=== PATIENT | female | born 1975 | race Caucasian/White ===

== ENCOUNTER 2023-03-12 10:34 | Emergency (ER) | payer OTHER ==
[~2023-03-12] VITALS: Ht 162.6 cm; Wt 63.5 kg
[~2023-03-12 10:34] MED LIST: IBUP-1969 PO; TRAM50TA2 PO
[2023-03-12 11:10] VITALS: BP_SYST 106; PULSE 75; RESP 16; TEMP 97.1; O2SAT 100
[2023-03-12] MEDS ORDERED: HYDROcodone/ACETAMIN 7.5-325 MG TAB PO ONE (12:15)
[2023-03-12] MEDS ORDERED: KETOROLAC TROMETHAMINE 60 MG/2 ML VIAL IM ONE (12:15)
[2023-03-12] MEDS ORDERED: IBUP-1969 PO (12:22)
[2023-03-12] MEDS ORDERED: TRAM50TA2 PO (12:22)
[2023-03-12 12:58] VITALS: BP_SYST 104; PULSE 65; RESP 16; TEMP 97.4; O2SAT 99
== END 2023-03-12 12:57 | disposition home or self-care (01) ==
LOC: SED 10:34
DX: S33.5XXA Sprain of ligaments of lumbar spine, initial encounter (principal); Z88.0 Allergy status to penicillin; Z79.899 Other long term (current) drug therapy; X50.0XXA Overexertion from strenuous movement or load, initial encounter; Y93.89 Activity, other specified; Y92.89 Other specified places as the place of occurrence of the external cause; Y99.8 Other external cause status
CPT/HCPCS: 99283; 72100; 81025; 96372; J1885

== ENCOUNTER 2023-06-13 17:07 | Emergency (ER) | payer OTHER ==
[~2023-06-13] VITALS: Ht 162.6 cm; Wt 68.0 kg
[2023-06-13 17:13] VITALS: BP_SYST 149; PULSE 98; RESP 16; TEMP 99.3; O2SAT 99
[2023-06-13 17:55] LABS: BASOPHILS % (AUTO) 0.2 % (0.0-2.0); EOSINOPHILS % (AUTO) 0.2 % (0.0-4.0); HEMATOCRIT 37.6 % (36-48); HEMOGLOBIN 12.8 g/dL (12.0-16.0); LYMPHOCYTES # (AUTO) 0.8 K/uL (1.0-5.5); LYMPHOCYTES % (AUTO) 12.1 % (20.5-51.5); MEAN CORPUSCULAR HEMOGLOBIN 32 pg (27-31); MEAN CORPUSCULAR HGB CONC 34 % (32-36); MEAN CORPUSCULAR VOLUME 94 fL (79.0-98.0); MONOCYTES % (AUTO) 15.2 % (1.7-9.3); NEUTROPHILS # (AUTO) 4.5 K/uL (1.8-7.7); NEUTROPHILS % (AUTO) 72.3 % (40.0-70.0); PLATELET COUNT (AUTO) 262 K/uL (130-430); RED BLOOD CELL COUNT(AUTO) 4.01 MIL/uL (4.2-6.2); RED CELL DISTRIBUTION WIDTH 12.8 % (9.0-15.0); WHITE BLOOD COUNT (AUTO) 6.3 K/uL (4.8-10.8)
[2023-06-13 17:59] LABS: INFLUENZA TYPE A Negative (NEGATIVE); INFLUENZA TYPE B NEGATIVE (NEGATIVE)
[2023-06-13 18:05] LABS: CREATININE 0.62 mg/dL (0.55-1.30); POTASSIUM 3.7 mmol/L (3.5-5.1)
[2023-06-13 18:23] LABS: BILIRUBIN,URINE NEGATIVE (NEGATIVE); BLOOD, URINE NEGATIVE (NEGATIVE); CLARITY/URINE CLEAR (CLEAR); COLOR,URINE YELLOW (YELLOW); GLUCOSE,URINE NEGATIVE (NEGATIVE); KETONES,URINE NEGATIVE (NEGATIVE); LEUKOCYTE ESTERASE ,URINE NEGATIVE (NEGATIVE); NITRITE, URINE NEGATIVE (NEGATIVE); PROTEIN URINE NEGATIVE (NEGATIVE); UROBILINOGEN,URINE 0.2 (0.2-1.0)
[2023-06-13] MEDS ORDERED: NIRM1TAB5 PO (19:12)
[2023-06-13 19:17] VITALS: BP_SYST 110; PULSE 92; RESP 22; TEMP 98.6; O2SAT 96
== END 2023-06-13 19:19 | disposition home or self-care (01) ==
LOC: SED 17:07
DX: U07.1 COVID-19 (principal); R50.9 Fever, unspecified; M79.10 Myalgia, unspecified site; J02.9 Acute pharyngitis, unspecified; Z88.0 Allergy status to penicillin; Z79.899 Other long term (current) drug therapy
CPT/HCPCS: 36415; 71045; 80048; 81001; 81003; 81025; 83605; 85025; 99284

== ENCOUNTER 2023-06-22 15:25 | Emergency (ER) | payer OTHER ==
[~2023-06-22] VITALS: Ht 170.2 cm; Wt 61.2 kg
[2023-06-22 15:25] VITALS: BP_SYST 97; PULSE 75; RESP 18; TEMP 97.6; O2SAT 99
[~2023-06-22 15:25] MED LIST changes: +NIRM1TAB5 PO
[2023-06-22 15:51] VITALS: BP_SYST 102; PULSE 80; RESP 20; TEMP 98.2; O2SAT 95
[2023-06-22] MEDS ORDERED: BENZ100C92 PO (16:21)
[2023-06-22] MEDS ORDERED: FLUT16SP16 NS (16:21)
[2023-06-22] MEDS ORDERED: ALBMDI INH (16:21)
== END 2023-06-22 16:32 | disposition home or self-care (01) ==
LOC: SED 15:25
DX: U07.1 COVID-19 (principal); Z88.0 Allergy status to penicillin
CPT/HCPCS: 99283